=== PATIENT | female | born 1985 | race Caucasian/White ===

== ENCOUNTER 2022-10-09 07:46 | Day surgery (SDC) | payer MEDICAID ==
[~2022-10-09] VITALS: Ht 149.9 cm; Wt 58.8 kg
[2022-10-09] MEDS ORDERED: LIDOcaine 1% 30ml preserv. free vial SQ STA (07:57)
[2022-10-09] MEDS ORDERED: OXYC-658 PO (08:10)
[2022-10-09] MEDS ORDERED: APIX5TAB3 PO (08:10)
[2022-10-09] MEDS ORDERED: ACET325T55 PO (08:10)
[2022-10-09] MEDS ORDERED: FERR325T28 PO (08:10)
[2022-10-09] MEDS ORDERED: MULT-1085 PO (08:10)
[2022-10-09] MEDS ORDERED: BALS750C PO (08:10)
[2022-10-09 08:13] VITALS: BP 92/61
[2022-10-09] MEDS ORDERED: MIDO5TAB4 PO (08:18)
[2022-10-09] MEDS ORDERED: midodrine 5mg tablet PO ONE (08:20)
[2022-10-09] MEDS ORDERED: METR-159 PO (08:21)
[2022-10-09] MEDS ORDERED: CIPR500T5 PO (08:21)
[2022-10-09] MEDS ORDERED: LEVO750T68 PO (08:21)
[2022-10-09 09:20] VITALS: BP 109/66
[2022-10-09 09:35] VITALS: BP 96/64
[2022-10-09] MEDS ORDERED: albumin 25% 100mL bottle x 1 IV PRN (09:35)
[2022-10-09 09:45] VITALS: BP 99/61
== END 2022-10-09 09:50 | disposition home or self-care (01) ==
LOC: SSTAY O 07:46
PROVIDERS: ATTEND Radiology Diagnostic Radiology
DX: C56.9 Malignant neoplasm of unspecified ovary (principal); R18.0 Malignant ascites; Z90.710 Acquired absence of both cervix and uterus; Z90.721 Acquired absence of ovaries, unilateral; Z86.711 Personal history of pulmonary embolism; Z79.01 Long term (current) use of anticoagulants; Z79.899 Other long term (current) drug therapy; Z88.7 Allergy status to serum and vaccine; Z91.018 Allergy to other foods
CPT/HCPCS: 49083; J3490; A6258; A6449

== ENCOUNTER 2022-11-21 07:04 | Day surgery (SDC) | payer MEDICAID ==
[~2022-11-21] VITALS: Ht 152.4 cm; Wt 47.9 kg
[~2022-11-21 07:04] MED LIST: ACET325T55 PO; APIX5TAB3 PO; BALS750C PO; CIPR500T5 PO; FERR325T28 PO; LEVO750T68 PO; METR-159 PO; MIDO5TAB4 PO; MULT-1085 PO; OXYC-658 PO
[2022-11-21] MEDS ORDERED: albumin 25% 100mL bottle x 1 IV PRN (07:25)
[2022-11-21] MEDS ORDERED: POTA-207 PO (07:32)
[2022-11-21 07:40] VITALS: BP 139/93
[2022-11-21 08:10] VITALS: BP 113/50
[2022-11-21 08:25] VITALS: BP 122/85
[2022-11-21 08:40] VITALS: BP 126/90
[2022-11-21 09:00] VITALS: BP 125/88
== END 2022-11-21 09:19 | disposition home or self-care (01) ==
LOC: SSTAY O 07:04
PROVIDERS: ATTEND Radiology Vascular & Interventional Radiology
DX: C56.9 Malignant neoplasm of unspecified ovary (principal); R18.0 Malignant ascites; I95.9 Hypotension, unspecified; Z90.710 Acquired absence of both cervix and uterus; Z90.721 Acquired absence of ovaries, unilateral; Z98.890 Other specified postprocedural states; Z86.711 Personal history of pulmonary embolism; Z79.01 Long term (current) use of anticoagulants; Z91.018 Allergy to other foods; Z79.899 Other long term (current) drug therapy
CPT/HCPCS: 49083; J3490; A6258; A6449

== ENCOUNTER 2022-12-04 06:32 | Day surgery (SDC) | payer MEDICAID ==
[~2022-12-04] VITALS: Ht 152.4 cm; Wt 48.6 kg
[~2022-12-04 06:32] MED LIST changes: -CIPR500T5 PO; -LEVO750T68 PO; -METR-159 PO; -MIDO5TAB4 PO; -OXYC-658 PO; +POTA-207 PO
[2022-12-04] MEDS ORDERED: LIDOcaine 1%/PF 5ML 10 MG/ML VIAL SQ ONE (06:45)
[2022-12-04 07:10] VITALS: BP 117/78
[2022-12-04] MEDS ORDERED: normal saline 1000ml 1,000 ML IV PRN (07:10)
[2022-12-04] MEDS ORDERED: albumin 25% 100mL bottle x 1 IV PRN (07:10)
[2022-12-04 08:25] VITALS: BP 132/88
[2022-12-04 08:40] VITALS: BP 124/89
[2022-12-04 08:55] VITALS: BP 122/91
[2022-12-04 09:10] VITALS: BP 114/82
[2022-12-04 09:25] VITALS: BP 117/79
== END 2022-12-04 09:25 | disposition home or self-care (01) ==
LOC: SSTAY O 06:32
PROVIDERS: ATTEND Radiology Vascular & Interventional Radiology
DX: C56.9 Malignant neoplasm of unspecified ovary (principal); R18.0 Malignant ascites; N17.9 Acute kidney failure, unspecified; Z91.041 Radiographic dye allergy status; Z86.711 Personal history of pulmonary embolism; Z79.01 Long term (current) use of anticoagulants; Z90.710 Acquired absence of both cervix and uterus; Z90.721 Acquired absence of ovaries, unilateral; Z98.890 Other specified postprocedural states; Z79.899 Other long term (current) drug therapy
CPT/HCPCS: 49083; J3490; A6258; A6449